=== PATIENT | male | born 1935 | race African-American/Black ===

== ENCOUNTER 2018-03-04 18:40 | Emergency (ER) | payer MEDICARE, OTHER ==
[~2018-03-04] VITALS: Ht 165.1 cm; Wt 68.0 kg
--- NOTE | 2018-03-04 18:40 | NUR ---
Pt placed in bed 1 by [facility]
[2018-03-04 18:49] VITALS: BP_SYST 124
--- NOTE | 2018-03-04 18:50 | NUR ---
Pt arrived to ED via BLS with complaints of unresponsive moments for 1-2 minutes at care facility [facility]. Pt has a history of being non-verbal, hx was provided from BLS. Pt is easily awaken to verbal stimuli by opening eyes with no verbal response.
[2018-03-04] MEDS ORDERED: POLY17PO4 PO (19:02)
[2018-03-04] MEDS ORDERED: MEMA10TA PO (19:02)
[2018-03-04] MEDS ORDERED: ACET-2165 PO (19:02)
[2018-03-04] MEDS ORDERED: SER25 PO (19:02)
[2018-03-04] MEDS ORDERED: MULT-1117 PO (19:02)
[2018-03-04] MEDS ORDERED: SENN8.6T19 PO (19:02)
--- NOTE | 2018-03-04 19:02 | NUR ---
Medication reconciliation completed with information provided by facility. Any prior medication reconciliation on file was reviewed and corrected.
--- NOTE | 2018-03-04 19:20 | NUR ---
ER at bedside examining patient.
--- NOTE | 2018-03-04 19:40 | NUR ---
# 14 FR In and Out catheter with use of sterile technique. Immediate return of 100 ml yellow, clear urine noted. Urine sample collected and sent to lab. Pt tolerated procedure well. Patient unable to toilet self.
[2018-03-04 19:56] LABS: BASOPHILS % (AUTO) 0.6 % (0.0-2.0); EOSINOPHILS % (AUTO) 0.8 % (0.0-4.0); HEMATOCRIT 32.2 % (36-54); LYMPHOCYTES # (AUTO) 1.1 K/uL (1.0-5.5); LYMPHOCYTES % (AUTO) 19.6 % (20.5-51.5); MEAN CORPUSCULAR HEMOGLOBIN 34 pg (27-31); MEAN CORPUSCULAR HGB CONC 34 % (32-36); MEAN CORPUSCULAR VOLUME 98 fL (79.0-98.0); MONOCYTES # (AUTO) 0.3 K/uL (0.0-1.0); MONOCYTES % (AUTO) 5.7 % (1.7-9.3); NEUTROPHILS # (AUTO) 4.2 K/uL (1.8-7.7); NEUTROPHILS % (AUTO) 73.3 % (40.0-70.0); PLATELET COUNT (AUTO) 228 K/uL (130-430); RED BLOOD CELL COUNT(AUTO) 3.29 MIL/uL (4.2-6.2); RED CELL DISTRIBUTION WIDTH 13.7 % (9.0-15.0); WHITE BLOOD COUNT (AUTO) 5.6 K/uL (4.8-10.8)
[2018-03-04 20:04] LABS: ALANINE AMINOTRANSFERASE 17 U/L (12-78); ALBUMIN 2.3 g/dL (3.4-4.8); ANION GAP 9 (5-15); ASPARTATE AMINOTRANSFERASE 26 U/L (10-37); CHLORIDE 103 mmol/L (98-107); CREATININE 0.96 mg/dL (0.55-1.30); GLUCOSE 100 mg/dL (70-99); POTASSIUM 5.3 mmol/L (3.5-5.1); SODIUM SERUM 137 mmol/L (136-145); TOTAL BILIRUBIN 0.4 mg/dL (0.0-1.0); UREA NITROGEN, BLOOD 23 mg/dL (8-21)
[2018-03-04 20:18] LABS: CLARITY/URINE CLEAR (CLEAR); COLOR,URINE YELLOW (YELLOW)
[2018-03-04 20:19] LABS: BILIRUBIN,URINE NEGATIVE (NEGATIVE); BLOOD, URINE NEGATIVE (NEGATIVE); GLUCOSE,URINE NEGATIVE (NEGATIVE); KETONES,URINE NEGATIVE (NEGATIVE); LEUKOCYTE ESTERASE ,URINE NEGATIVE (NEGATIVE); NITRITE, URINE NEGATIVE (NEGATIVE); PROTEIN URINE NEGATIVE (NEGATIVE)
[2018-03-04] MEDS: NACL 0.9% 1,000 ML IV ONE (20:47)
--- NOTE | 2018-03-04 20:47 | NUR ---
PT started on IVF per MD order. Tolerated well. Will cont. to monitor.
--- NOTE | 2018-03-04 20:52 | NUR ---
Radiology took pt via gurjoyce. Pt tolerating well. Will cont. to monitor.
--- NOTE | 2018-03-04 22:16 | NUR ---
Spoke to pts brother Kenyon, who confirmed for pt to be transferred to [facility] since pt is unable to do so.
--- NOTE | 2018-03-04 23:58 | NUR ---
Patient to be transferred to [facility]. Is being transferred due to higher level of care. Receiving facility has accepting physician and available space. ER physician has signed transfer form. Patient or responsible constitution party has agreed to transfer and signed form. Patient belongings inventoried and will be sent with patient. Copy of nursing notes, lab reports, EKG, Physicians Orders and X-rays to be sent with patient. Report called to at receiving facility. Receiving physician is Dr. Dalton. [facility] [place] for transfer. ETA is now.
--- NOTE | 2018-03-04 23:58 | NUR ---
Patient to be transferred to [facility]. Is being transferred due to higher level of care. Receiving facility has accepting physician and available space. ER physician has signed transfer form. Patient or responsible libertarian has agreed to transfer and signed form. Patient belongings inventoried and will be sent with patient. Copy of nursing notes, lab reports, EKG, Physicians Orders and X-rays to be sent with patient. Report called to ELZA Mack at receiving facility. Receiving physician is Dr. Dalton. [facility] [place] [facility] ambulance service has been called for transfer. ETA is now.
[2018-03-05 01:46] VITALS: BP_SYST 134
== END 2018-03-04 23:58 | disposition short-term general hospital (02) ==
LOC: SED 18:40
DX: R40.4 Transient alteration of awareness (principal); G20 Parkinson's disease; F02.80 Dementia in other diseases classified elsewhere, unspecified severity, without behavioral disturbance, psychotic disturbance, mood disturbance, and anxiety; E78.5 Hyperlipidemia, unspecified; Z86.2 Personal history of diseases of the blood and blood-forming organs and certain disorders involving the immune mechanism; Z79.899 Other long term (current) drug therapy
CPT/HCPCS: 36415; 70450; 71045; 80053; 81003; 82962; 84484; 85025; 93005; 99284; J7030